=== PATIENT | female | born 1965 | race Caucasian/White ===

== ENCOUNTER → 2020-06-12 | Outpatient (CLI) | payer OTHER ==
[~2020-06-12] MED LIST: ALDACTONE 25MG25 M1 PO; ENULOSE10 GM/15 M PO; JENTADUETO 2.51 TA1 PO; PRIL40 PO; ZESTRIL 20MG TA20 MG PO
== END ==
LOC: MC.RAD 09:30
DX: Z12.31 Encounter for screening mammogram for malignant neoplasm of breast (principal)

== ENCOUNTER → 2020-06-13 | Outpatient (CLI) | payer MEDICAID | LOC: COL.CARD 09:36 | DX: I34.0 Nonrheumatic mitral (valve) insufficiency (principal) ==

== ENCOUNTER 2020-07-03 09:30 | Outpatient (RCR) | payer MEDICAID, OTHER ==
[2020-08-01] MEDS ORDERED: ZITHROMAX Z PA250 MG PO (15:16)
[2020-08-03] MEDS ORDERED: ZITHROMAX Z PA250 MG PO (18:07)
== END 2020-09-06 14:33 | disposition home or self-care (01) ==
LOC: WSOT 09:30
DX: G56.00 Carpal tunnel syndrome, unspecified upper limb (principal)

== ENCOUNTER → 2020-07-05 | Outpatient (CLI) | payer MEDICAID | LOC: COL.RAD 09:47 | DX: C22.0 Liver cell carcinoma (principal) | CPT/HCPCS: A9537; J2805 ==

== ENCOUNTER → 2020-07-17 | Outpatient (CLI) | payer MEDICAID ==
[2020-07-17 12:32] LABS: BASO % 0.3 % (0.0-2.0); EOS % 0.3 % (0-4.0); GRAN # 2.5 (1.4-6.5); GRAN % 72.4 % (42.2-75.2); HEMOGLOBIN 12.3 g/dl (12.5-16.0); LYMPH # 0.7 (1.2-3.4); LYMPH % 18.9 % (20.0-51.0); MEAN CELL VOLUME 97 fl (80.0-100.0); MEAN CORPUSCULAR HEMOGLOBIN 34 pg (27.0-31.0); MEAN CORPUSCULAR HGB CONC 35 g/dl (33.0-37.0); MONO # 0.3 (0.1-0.6); MONO % 7.8 % (1.7-9.3); PLATELET COUNT 58 K/mm3 (130-400); RED BLOOD COUNT 3.65 M/mm3 (4.10-5.30); REDCELL DISTRIBUTION WIDTH-CV 13.7 % (11.5-14.5)
[2020-07-17 12:36] LABS: HEMATOCRIT 35.4 % (37.0-47.0)
[2020-07-17 12:39] LABS: INR 1.4 (0.8-3.0); PROTHROMBIN TIME 15.5 SECONDS (9.7-12.8)
[2020-07-17 12:44] LABS: ALBUMIN 4.1 gm/dL (3.5-5.0); BILIRUBIN,TOTAL 1.5 mg/dL (0.0-1.0); CALCIUM 9.2 mg/dL (8.4-10.2); CREATININE, serum 0.63 (0.52-1.25); POTASSIUM 3.9 mmol/L (3.4-5.0); TOTAL PROTEIN 8.5 gm/dL (6.4-8.2)
== END ==
LOC: COL.RAD 10:49 → COL.LAB 10:49 → COL.RAD 11:00
PROVIDERS: Internal Medicine
DX: C22.0 Liver cell carcinoma (principal); I26.99 Other pulmonary embolism without acute cor pulmonale; R91.8 Other nonspecific abnormal finding of lung field
CPT/HCPCS: Q9967

== ENCOUNTER → 2020-07-24 | Outpatient (CLI) | payer MEDICAID | LOC: COL.CARD 12:58 | DX: R01.1 Cardiac murmur, unspecified (principal) ==

== ENCOUNTER 2020-08-01 12:00 | Emergency (ER) | payer MEDICAID ==
[~2020-08-01] VITALS: Ht 149.9 cm; Wt 53.2 kg
[2020-08-01 12:09] VITALS: TEMP 98.6
[2020-08-01 12:57] LABS: BASO % 0.2 % (0.0-2.0); EOS # 0.1 (0.0-0.7); EOS % 1.4 % (0-4.0); GRAN # 3.1 (1.4-6.5); GRAN % 68.9 % (42.2-75.2); HEMATOCRIT 31.8 % (37.0-47.0); HEMOGLOBIN 10.6 g/dl (12.5-16.0); LYMPH % 21.9 % (20.0-51.0); MEAN CELL VOLUME 102 fl (80.0-100.0); MEAN CORPUSCULAR HEMOGLOBIN 34 pg (27.0-31.0); MEAN CORPUSCULAR HGB CONC 33 g/dl (33.0-37.0); MEAN PLATELET VOLUME 9.7 fl (7.4-10.4); MONO # 0.3 (0.1-0.6); MONO % 7.4 % (1.7-9.3); PLATELET COUNT 96 K/mm3 (130-400); RED BLOOD COUNT 3.12 M/mm3 (4.10-5.30); REDCELL DISTRIBUTION WIDTH-CV 17.6 % (11.5-14.5)
[2020-08-01 13:08] LABS: ALBUMIN 3.9 gm/dL (3.5-5.0); BILIRUBIN,TOTAL 1.2 mg/dL (0.0-1.0); CREATININE, serum 0.83 (0.52-1.25); POTASSIUM 4.2 mmol/L (3.4-5.0); TOTAL PROTEIN 8.3 gm/dL (6.4-8.2)
[2020-08-01] MEDS ORDERED: ZITHROMAX Z PA250 MG PO (15:16)
[2020-08-01 16:10] VITALS: BP 134/94; PULSE 90
== END 2020-08-01 16:12 | disposition home or self-care (01) ==
LOC: COL.ER 12:00
PROVIDERS: Family Medicine
DX: J06.9 Acute upper respiratory infection, unspecified (principal); Z20.828 Contact with and (suspected) exposure to other viral communicable diseases

== ENCOUNTER → 2020-09-14 | Outpatient (CLI) | payer MEDICAID ==
[~2020-09-14] MED LIST changes: +ZITHROMAX Z PA250 MG PO
[2020-09-14 09:01] LABS: INR 1.9 (0.8-3.0); PROTHROMBIN TIME 21.9 SECONDS (9.7-12.8)
[2020-09-14 09:04] LABS: PARTIAL THROMBOPLASTIN TIME 37.3 SECONDS (26.0-37.0)
== END ==
LOC: COL.RAD 08:00 → COL.LAB 08:14 → COL.RAD 09:45
PROVIDERS: Orthopaedic Surgery
DX: C41.9 Malignant neoplasm of bone and articular cartilage, unspecified (principal); C78.7 Secondary malignant neoplasm of liver and intrahepatic bile duct
CPT/HCPCS: A9503

== ENCOUNTER → 2020-09-22 | Outpatient (CLI) | payer MEDICAID | LOC: ZCOL.LAB 02:31 | DX: Z01.812 Encounter for preprocedural laboratory examination (principal); B34.9 Viral infection, unspecified; Z20.828 Contact with and (suspected) exposure to other viral communicable diseases ==

== ENCOUNTER 2020-10-29 22:34 | Inpatient (IN) | payer MEDICAID ==
[~2020-10-29] VITALS: Ht 149.9 cm; Wt 60.1 kg
[2020-10-30 01:10] LABS: CREATININE, serum 0.44 (0.52-1.25); INR 2.1 (0.8-3.0); PARTIAL THROMBOPLASTIN TIME 38.7 SECONDS (26.0-37.0); PROTHROMBIN TIME 23.3 SECONDS (9.7-12.8)
[2020-10-30 01:11] LABS: ALBUMIN 2.8 gm/dL (3.5-5.0); BILIRUBIN,TOTAL 0.8 mg/dL (0.0-1.0); TOTAL PROTEIN 7.1 gm/dL (6.4-8.2)
[2020-10-30 01:12] LABS: POTASSIUM 2.9 mmol/L (3.4-5.0)
[2020-10-30 01:13] LABS: BASO % 0.4 % (0.0-2.0); EOS # 0.1 (0.0-0.7); EOS % 4.3 % (0-4.0); GRAN # 1.8 (1.4-6.5); GRAN % 65.5 % (42.2-75.2); HEMATOCRIT 26.8 % (37.0-47.0); HEMOGLOBIN 8.5 g/dl (12.5-16.0); LYMPH # 0.5 (1.2-3.4); LYMPH % 17.8 % (20.0-51.0); MEAN CELL VOLUME 102 fl (80.0-100.0); MEAN CORPUSCULAR HEMOGLOBIN 32 pg (27.0-31.0); MEAN CORPUSCULAR HGB CONC 32 g/dl (33.0-37.0); MEAN PLATELET VOLUME 9.4 fl (7.4-10.4); MONO # 0.3 (0.1-0.6); MONO % 11.6 % (1.7-9.3); PLATELET COUNT 98 K/mm3 (130-400); RED BLOOD COUNT 2.62 M/mm3 (4.10-5.30); REDCELL DISTRIBUTION WIDTH-CV 18.8 % (11.5-14.5)
[2020-10-30 02:39] LABS: HEMATOCRIT 24.4 % (37.0-47.0); HEMOGLOBIN 7.9 g/dl (12.5-16.0)
[2020-10-30] MEDS ORDERED: MACROBID 1100 MG/CAP PO (04:07)
[2020-10-30] MEDS ORDERED: ELIQUIS 5MG PO (04:38)
--- NOTE | 2020-10-30 05:00 | NUR ---
Patient to medical room 316 at this time. She is alert and oriented with complaints of pain 8/10 in her lower abdomen. She requets to use the bathroom and transfers to BS with SBA; She has a small, liquid BM with a very scant amount of blood. She is not SOA. IV fluids, potassium replacement, morphine pain management and protonix administration initiated. She has a left hip incision from her surgery 2-3 weeks ago at [facility]; Incisions are CDI.
[2020-10-30 05:17] VITALS: BP 118/66; PULSE 87; TEMP 98.3
[2020-10-30 05:54] LABS: BASO % 0.4 % (0.0-2.0); EOS # 0.1 (0.0-0.7); GRAN # 1.3 (1.4-6.5); GRAN % 54.8 % (42.2-75.2); LYMPH # 0.6 (1.2-3.4); MEAN CELL VOLUME 104 fl (80.0-100.0); MEAN CORPUSCULAR HGB CONC 32 g/dl (33.0-37.0); MEAN PLATELET VOLUME 10.1 fl (7.4-10.4); MONO # 0.3 (0.1-0.6); MONO % 13.4 % (1.7-9.3); PLATELET COUNT 83 K/mm3 (130-400); RED BLOOD COUNT 2.45 M/mm3 (4.10-5.30); REDCELL DISTRIBUTION WIDTH-CV 18.7 % (11.5-14.5)
[2020-10-30 05:56] LABS: HEMATOCRIT 25.4 % (37.0-47.0); HEMOGLOBIN 8.2 g/dl (12.5-16.0); MEAN CORPUSCULAR HEMOGLOBIN 33 pg (27.0-31.0)
[2020-10-30 06:07] LABS: CALCIUM 7.3 mg/dL (8.4-10.2); CREATININE, serum 0.4 (0.52-1.25); POTASSIUM 3.3 mmol/L (3.4-5.0)
[2020-10-30 06:24] LABS: COLLECTION METHOD CLEAN CATCH; MUCOUS Present /lpf; PH 5 (5-8); SQUAMOUS EPITHELIAL 0-2 /hpf; URINE APPEARANCE Clear; URINE BACTERIA None Seen /hpf; URINE BILIRUBIN Negative (NEGATIVE); URINE BLOOD Negative (NEGATIVE); URINE COLOR Yellow; URINE GLUCOSE Negative (NEGATIVE); URINE KETONE Negative (NEGATIVE); URINE LEUKOCYTE ESTERASE Negative (NEGATIVE); URINE NITRATE Negative (NEGATIVE); URINE PROTEIN(semi-quant) Negative (NEGATIVE); URINE RBC 0-2 /hpf; URINE UROBILINOGEN Negative (NEGATIVE)
--- NOTE | 2020-10-30 07:40 | NUR ---
PT PLEASANT, AOX4, REPORTS ABD PAIN, MORPHINE GIVEN WHEN AVAILABLE, ALL OTHER MEDS GIVEN, PT POTASSIUM RUNNING, STILL HAVING DIARRHEA, NO OTHER NEEDS
[2020-10-30 08:10] VITALS: BP 142/80; PULSE 94; TEMP 98.5
[2020-10-30 12:37] VITALS: BP 113/90; PULSE 89; TEMP 98.1
--- NOTE | 2020-10-30 13:58 | NUR ---
First visit from the veterinary technology instructor. No needs right now.
--- NOTE | 2020-10-30 16:01 | NUR ---
Hydraulic Miner met with patient to discuss discharge planning. Patient lives in [place] with her daughter, Gissel (ph#[phone]) and son in law Tomasz (ph#[phone]). Patient goes to the [facility] for primary care and currently obtains medications from [facility]. Patient states she does have some difficulty picking up her medications because she has to rely on Tomasz for transportation. Patient is interested in switching to a pharmacy that delivers medications. SW advised [facility] both offer delivery. Patient states she may consider changing. Patient uses a walker and cane at home. Patient is interested in obtaining a bedside commode so SW advised patient where this could be purchased as insurance typically will not cover this. Patient states her daughter Gissel provides assistance as needed with ADLS. Patient states she is in the process of completing DPOA-HC and plans to designate Gissel and Tomasz. Patient states her son, Giles (ph#[phone]) is also another good point of contact. Patient plans to return home upon discharge. SW will continue to follow.
--- NOTE | 2020-10-30 16:09 | NUR ---
English Adjunct Faculty contacted [facility] to request PT/OT orders.
[2020-10-30 16:32] VITALS: BP 116/76; PULSE 88; TEMP 98.1
--- NOTE | 2020-10-30 16:32 | NUR ---
DISCUSSED CURRENT POC WITH PT SON
[2020-10-30 16:34] LABS: HEMATOCRIT 30.1 % (37.0-47.0); HEMOGLOBIN 9.4 g/dl (12.5-16.0)
--- NOTE | 2020-10-30 17:49 | NUR ---
PT STARTING GOLYTELY, NAUSEAS DESPITE ZOFRAN ADMINISTRATION,DENYING ABD PAIN SINCE AFTERNOON. PT HAVING DIARRHEA FREQUENTLY STILL, NO OTHER NEEDS AT THIS TIME.
--- NOTE | 2020-10-30 20:00 | NUR ---
Assessment complete. Patient is drinking her 3rd cup of go-lightly and is starting to have loose stools. She has no complaints of nausea or pain at this time. No new concerns. Call light in reach.
[2020-10-30 20:53] VITALS: BP 111/68; PULSE 93; TEMP 99.2
[2020-10-31] VITALS (11 sets, daily range): BP systolic 87–103; BP diastolic 59–66; PULSE 77–90; TEMP 98.3–98.6
--- NOTE | 2020-10-31 05:26 | NUR ---
Patient has been consistently drinking go-lightly throughout the night. Stool is currently watery and mostly clear, with occassional chunks or red-tinged. She has had no complaints of pain overnight. Will continue to monitor.
--- NOTE | 2020-10-31 06:50 | NUR ---
Report with SHARMILA Mon. Pt resting in bed, alert but drowsy, denies needs at this time. POC reviewed with pt to have nothing more by mouth until after procedure. Pt verbalizes understanding. Call light in reach.
[2020-10-31 07:23] LABS: BASO % 0.7 % (0.0-2.0); EOS # 0.1 (0.0-0.7); EOS % 3.6 % (0-4.0); GRAN # 1.7 (1.4-6.5); GRAN % 55.8 % (42.2-75.2); LYMPH # 0.7 (1.2-3.4); LYMPH % 23.9 % (20.0-51.0); MEAN CELL VOLUME 105 fl (80.0-100.0); MEAN CORPUSCULAR HGB CONC 32 g/dl (33.0-37.0); MEAN PLATELET VOLUME 10.4 fl (7.4-10.4); MONO # 0.5 (0.1-0.6); MONO % 15.7 % (1.7-9.3); PLATELET COUNT 94 K/mm3 (130-400); RED BLOOD COUNT 2.49 M/mm3 (4.10-5.30); REDCELL DISTRIBUTION WIDTH-CV 19.1 % (11.5-14.5)
[2020-10-31 07:30] LABS: HEMATOCRIT 26.1 % (37.0-47.0); HEMOGLOBIN 8.3 g/dl (12.5-16.0); MEAN CORPUSCULAR HEMOGLOBIN 33 pg (27.0-31.0)
[2020-10-31 07:33] LABS: ALBUMIN 2.4 gm/dL (3.5-5.0); BILIRUBIN,TOTAL 1.1 mg/dL (0.0-1.0); CALCIUM 7.1 mg/dL (8.4-10.2); CREATININE, serum 0.47 (0.52-1.25); MAGNESIUM 1.8 mg/dL (1.6-2.3); POTASSIUM 3.9 mmol/L (3.4-5.0); TOTAL PROTEIN 6.4 gm/dL (6.4-8.2)
--- NOTE | 2020-10-31 08:00 | NUR ---
Assessment complete. Pt resting in bed, A&O x 4, denies pain or needs at this time. Pt having liquid, mostly clear stools after bowel prep. Saline lock IV to left AC site without s/s of complications. Physical assessment otherwise unremarkabl. Call light in reach.
--- NOTE | 2020-10-31 11:10 | NUR ---
Pt to endo for procedure via cart accompanied by nurse.
--- NOTE | 2020-10-31 12:15 | NUR ---
Pt back to room following procedure, awake and alert, denies pain, reports appetite and requesting advanced diet VSS. No further needs reported. Call light in reach.
[2020-10-31 16:12] LABS: CLOSTRIDIUM DIFF A/B NEG; CLOSTRIDIUM DIFF A/B INTERP No C.diff present
--- NOTE | 2020-10-31 18:45 | NUR ---
26 jeanine removed from left hip site with incision x 3, slight redness around staple insertion sites but no complications with removal. Edges of incisions well approximated. Pt denies needs. Call light in reach.
--- NOTE | 2020-10-31 20:00 | NUR ---
Assessment complete. Patient complains of abdominal pain 7/10 and 2 mg morphine is administered. She is otherwise comfortable with no new concerns. Her left hip incision has had jeanine removed and it is SENIOR CONSULTANT and CDI. Patient gets up independently to the restroom. Call light in reach.
--- NOTE | 2020-10-31 20:00 | NUR ---
Patient to medical room 319 at this time. He is alert and oriented and independently ambulatory. He has no complaints of pain; He states he is experiencing some chills and a temperature of 101 degrees. 2nd NS bolus of 1000 mls is currently infusing. Lung sounds are clear, heart rate is normal/regular, no edema, no skin issues. Patient is educated eyewear consultant light system and bed controls. Will continue to monitor.
[2020-11-01 07:14] LABS: POTASSIUM 4.2 mmol/L (3.4-5.0)
[2020-11-01 07:57] VITALS: BP 98/66; PULSE 69; TEMP 98.4
[2020-11-01 08:13] LABS: MEAN CELL VOLUME 108 fl (80.0-100.0); MEAN CORPUSCULAR HGB CONC 31 g/dl (33.0-37.0); MEAN PLATELET VOLUME 10.4 fl (7.4-10.4); PLATELET COUNT 83 K/mm3 (130-400); RED BLOOD COUNT 2.56 M/mm3 (4.10-5.30); REDCELL DISTRIBUTION WIDTH-CV 18.8 % (11.5-14.5)
[2020-11-01 08:19] LABS: HEMATOCRIT 27.6 % (37.0-47.0); HEMOGLOBIN 8.5 g/dl (12.5-16.0); MEAN CORPUSCULAR HEMOGLOBIN 33 pg (27.0-31.0)
[2020-11-01 08:22] LABS: CALCIUM 7.6 mg/dL (8.4-10.2); CREATININE, serum 0.46 (0.52-1.25)
--- NOTE | 2020-11-01 08:25 | NUR ---
Shift assessment complete. Sitting up in chair eating breakfast. A&Ox4. Heart RRR. Lungs CTA. Denies pain, nausea, dizziness, or SOA. No other complaints at this time. Call light in reach.
[2020-11-01] MEDS ORDERED: PREDNISONE50 MG PO (09:48)
[2020-11-01] MEDS ORDERED: PREDNISONE10 MG PO (09:49)
[2020-11-01 11:20] VITALS: BP 91/63; PULSE 64; TEMP 97.7
[2020-11-01] MEDS ORDERED: K-DUR 10 MEQ T10 MEQ PO (12:09)
--- NOTE | 2020-11-01 12:15 | NUR ---
Patient asked for ashes for reinaldo friday. annointed her with ashes. No other needs right now.
--- NOTE | 2020-11-01 12:46 | NUR ---
Discharge instructions discussed with pt and all questions answered. Pt had some confusion on which meds to continue at home, Yaquelin CAUSEY notified and discussed/wrote all meds down for pt. Pt verbalizes understanding at this time. Left AC INT removed w/o S/S complication. Pt awaiting clothes and ride from son-in-law.
== END 2020-11-01 13:30 | disposition home or self-care (01) | DRG 393 ==
LOC: COL.ER 22:34 → MEDICAL 10-30 03:07
PROVIDERS: Family Medicine; Hospitalist; Internal Medicine Gastroenterology; Nurse Practitioner Family; Physician Assistant; ADMIT Internal Medicine
PROC: 0DBE8ZX Excision of Large Intestine, Via Natural or Artificial Opening Endoscopic, Diagnostic (ICD-10-PCS; principal; 2020-10-31 12:00)
DX: K52.1 Toxic gastroenteritis and colitis (principal); I82.0 Budd-Chiari syndrome; C22.8 Malignant neoplasm of liver, primary, unspecified as to type; R18.8 Other ascites; N39.0 Urinary tract infection, site not specified; C79.51 Secondary malignant neoplasm of bone; T45.1X5A Adverse effect of antineoplastic and immunosuppressive drugs, initial encounter; I10 Essential (primary) hypertension; E11.9 Type 2 diabetes mellitus without complications; K74.60 Unspecified cirrhosis of liver; R01.1 Cardiac murmur, unspecified; I86.4 Gastric varices; I86.8 Varicose veins of other specified sites; D53.9 Nutritional anemia, unspecified; E87.6 Hypokalemia; B19.20 Unspecified viral hepatitis C without hepatic coma; Z86.711 Personal history of pulmonary embolism; Z79.01 Long term (current) use of anticoagulants; Z87.891 Personal history of nicotine dependence; Z96.642 Presence of left artificial hip joint
CPT/HCPCS: 99223-AI; 99232-AI; 99239; C9113; J0696; J2270; J2354; J2405; J2704; J3010; J3480; J7030; J7040; J7512; Q9967

== ENCOUNTER 2020-11-22 20:14 | Observation (INO) | payer MEDICAID ==
[~2020-11-22] VITALS: Ht 144.8 cm; Wt 50.9 kg
[~2020-11-22 20:14] MED LIST changes: +ELIQUIS 5MG PO; +K-DUR 10 MEQ T10 MEQ PO; +MACROBID 1100 MG/CAP PO; +PREDNISONE10 MG PO; +PREDNISONE20 MG PO; +PREDNISONE50 MG PO; +ROXICODONE 55 MG/TAB PO; +ULTRAM 50MG TAB50 MG PO
[2020-11-22 20:55] LABS: BASO % 0.3 % (0.0-2.0); GRAN # 2.9 (1.4-6.5); GRAN % 75.7 % (42.2-75.2); HEMATOCRIT 30.4 % (37.0-47.0); HEMOGLOBIN 9.6 g/dl (12.5-16.0); LYMPH # 0.8 (1.2-3.4); LYMPH % 19.6 % (20.0-51.0); MEAN CELL VOLUME 102 fl (80.0-100.0); MEAN CORPUSCULAR HEMOGLOBIN 32 pg (27.0-31.0); MEAN CORPUSCULAR HGB CONC 32 g/dl (33.0-37.0); MEAN PLATELET VOLUME 11.3 fl (7.4-10.4); MONO # 0.2 (0.1-0.6); MONO % 3.9 % (1.7-9.3); RED BLOOD COUNT 2.98 M/mm3 (4.10-5.30); REDCELL DISTRIBUTION WIDTH-CV 17.2 % (11.5-14.5)
[2020-11-22 20:57] LABS: PLATELET COUNT 39 K/mm3 (130-400)
[2020-11-22 21:00] LABS: ALBUMIN 2.7 gm/dL (3.5-5.0); BILIRUBIN,TOTAL 1.8 mg/dL (0.0-1.0); CREATININE, serum 0.84 (0.52-1.25); POTASSIUM 4.6 mmol/L (3.4-5.0); TOTAL PROTEIN 6.1 gm/dL (6.4-8.2)
[2020-11-22 21:47] LABS: PROTHROMBIN TIME 22.1 SECONDS (9.7-12.8)
[2020-11-22] MEDS ORDERED: XIFAXAN550 MG PO (22:08)
[2020-11-22] MEDS ORDERED: JENTADUETO 2.51 TA1 PO (22:09)
[2020-11-22] MEDS ORDERED: ALDACTONE 25MG25 M1 PO (22:10)
[2020-11-22] MEDS ORDERED: PROZAC 10MG10 MG PO (22:11)
[2020-11-22] MEDS ORDERED: ZOFRAN 4MG T4 MG/TAB PO (22:12)
[2020-11-23] VITALS (9 sets, daily range): BP systolic 99–108; BP diastolic 58–80; PULSE 73–91; TEMP 97.3–98.7
[2020-11-23] MEDS ORDERED: ROXICODONE 55 MG/TAB PO (00:09)
--- NOTE | 2020-11-23 01:05 | NUR ---
2330- PT ADMIT FROM ER PER W/C. HAS BEEN HAVING ABD PAIN RATING 10/10 LOWER ABD ALL ACROSS. HAVING BLOODY STOOLS WITH NAUSEA. DENIES SOA, CHEST PAIN BUT DOES FEEL LIGHTHEADED AND DIZZY AT TIMES. PT BLOOD SUGAR OF 369 NOT TX IN ER. CALLING VINAY CAUSEY FOR PAIN MED, NAUSEA MED AND ORDER FOR BS. 0213- VINAY AT BEDSIDE, ORDERS RECIEVED. PT DAUGHTER AND SON ON FACETIME FOR ASSESSMENT. PT LIVES W DAUGHTER HERE LOCALLY. PT IS A HARD STICK AND A BLEEDER PER ED REPORT TOOK 4X TO GET RT AC, GUARDING. MED REC COMPLETE. GI WILL BE CONSULTED. RECENT EDG COLONSCOPE W LAST ADMIT FINDINGS PER PT WAS COLITIS. HAS HAD LOOSE STOOLS X 3-4 A DAY FOR A LONG TIME PER PT. HOME MEDS RESTARTED. ZOFRAN AND DILUADID FOR BREAKTHRU PAIN GIVEN. PT FEELING MORE COMFORTABLE AFTER. CALL LIGHT W REACH, BED IN LOW POSITION. ORIENTATED TO ROOM. PLEASENT AND THANKFUL.
--- NOTE | 2020-11-23 05:41 | NUR ---
RESTED THROUGH THE NIGHT WO INCIDENT. SINCE PAIN MED GIVEN SLEPT, RESP EVEN AND UNLABORED. NEEDS MET.
[2020-11-23 06:55] LABS: EOS % 0.3 % (0-4.0); GRAN # 2.1 (1.4-6.5); GRAN % 63.5 % (42.2-75.2); LYMPH % 28.7 % (20.0-51.0); MEAN CELL VOLUME 103 fl (80.0-100.0); MEAN CORPUSCULAR HGB CONC 32 g/dl (33.0-37.0); MEAN PLATELET VOLUME 12.9 fl (7.4-10.4); MONO # 0.2 (0.1-0.6); MONO % 7.2 % (1.7-9.3); RED BLOOD COUNT 2.51 M/mm3 (4.10-5.30); REDCELL DISTRIBUTION WIDTH-CV 17.2 % (11.5-14.5)
[2020-11-23 06:58] LABS: HEMATOCRIT 25.9 % (37.0-47.0); HEMOGLOBIN 8.2 g/dl (12.5-16.0); MEAN CORPUSCULAR HEMOGLOBIN 33 pg (27.0-31.0)
[2020-11-23 06:59] LABS: PLATELET COUNT 34 K/mm3 (130-400)
[2020-11-23 07:12] LABS: CALCIUM 7.5 mg/dL (8.4-10.2); CREATININE, serum 0.7 (0.52-1.25); POTASSIUM 3.8 mmol/L (3.4-5.0)
[2020-11-23 08:26] LABS: COLLECTION METHOD CLEAN CATCH
[2020-11-23 08:47] LABS: MUCOUS Present /lpf; PH 5 (5-8); SQUAMOUS EPITHELIAL 0-2 /hpf; URINE APPEARANCE Hazy; URINE BACTERIA None Seen /hpf; URINE BILIRUBIN Negative (NEGATIVE); URINE BLOOD Negative (NEGATIVE); URINE COLOR Amber; URINE GLUCOSE 3+ (NEGATIVE); URINE KETONE Negative (NEGATIVE); URINE LEUKOCYTE ESTERASE Trace (NEGATIVE); URINE NITRATE Negative (NEGATIVE); URINE PROTEIN(semi-quant) 1+ (NEGATIVE); URINE RBC 0-2 /hpf; URINE UROBILINOGEN Negative (NEGATIVE)
--- NOTE | 2020-11-23 11:56 | NUR ---
First visit from the market intelligence consultant. No needs right now.
--- NOTE | 2020-11-23 12:03 | NUR ---
ANTHONY met with the patient to discuss discharge plan. The patient's daughter, Gissel (ph#[phone]), was on video chat on the patient's phone. The patient lives in [place] with Gissel and Gissel's , Tomasz (ph#[phone]). She reports needing assistance with ADLs and has a cane and walker. Gissel reports that she helps the patient with her ADLs. The patient also has home health services from [facility]. ANTHONY attempted to contact Lala at [facility]. ANTHONY left her a voicemail and faxed over updates. The patient does not have a DPOA-HC, but the patient and her daughter were interested in a form. ANTHONY provided. The patient plans to return home with her daughter and resume services from [facility]. SW to continue to follow.
--- NOTE | 2020-11-23 13:50 | NUR ---
Attempted to meet with patient in her room. She was unable to keep her eyes open during initial conversation and when I asked if I should come back later she nodded yes. I then attempted to call her daughter Gissel, but left a message on her voicemail as she was not available either.
--- NOTE | 2020-11-23 19:24 | NUR ---
PT HAD UNEVENTFUL DAY. PT BMs HAVE DECREASED, AND HAVE BEEN LESS DIARRHEA, AND MORE SOFT/LOOSE LIGHT BROWN STOOL. PT STATES SHE IS FEELING MUCH BETTER, BUT IS HAVING INCREASED ANXIETY. CONTACTED PROVIDER WHO DID ORDER SOME LORAZEPAM TO HELP. REPORT HAS BEEN GIVEN TO SHARMILA COBOS AND THERE ARE NO FURTHER CONCERNS.
[2020-11-24 00:39] VITALS: BP 100/69; PULSE 73; TEMP 97.9
[2020-11-24 04:03] VITALS: BP 88/60; PULSE 70; TEMP 97.9
--- NOTE | 2020-11-24 04:15 | NUR ---
Patient had an uneventful night. She had one bowel movement and that was shift change last night. She has been asleep since then. Her blood pressures has been in the low 100's systolic. Her last blood pressure was 88/60 and will call Stephanie CAUSEY. She is asymptomatic. Her blood sugars has been, 200 at 1800 yesterday, 231 at midnight and 185 at 4am. I did also give her some apple juice at midnight as well. That is the only thing she consumed for me. She is resting well and only complains of slight pain on her abdomen.
--- NOTE | 2020-11-24 05:11 | NUR ---
Patient's blood pressure was 88/60 on a few different attempts. She was sleeping prior to taking the BP. Although she does typically average in the low 100's systolic, I did inform Stephanie CAUSEY and she said shes fine with it because the MAP is still greater than 65. Patient is still asymptomatic.
--- NOTE | 2020-11-24 07:10 | NUR ---
PER REPORT PT HAD UNEVENTFUL NIGHT, SOME PAIN NOTED. PT STATES SHE HAS NOT HAD A BM SINCE LAST NIGHT, AND IT WAS BROWN, NOT MUCH RED TO NOTE LIKE PREVIOUS STOOLS. AT THIS TIME, THE PATIENT IS LAYING IN BED, AND NOT MOVING MUCH FROM THE PAIN OF THE ACITES. WILL CONTINUE TO MONITOR. CALL LIGHT WITH IN REACH.
[2020-11-24 07:11] LABS: GRAN # 2.1 (1.4-6.5); GRAN % 73.4 % (42.2-75.2); LYMPH # 0.6 (1.2-3.4); LYMPH % 20.5 % (20.0-51.0); MEAN CELL VOLUME 103 fl (80.0-100.0); MEAN CORPUSCULAR HGB CONC 32 g/dl (33.0-37.0); MEAN PLATELET VOLUME 11.5 fl (7.4-10.4); MONO # 0.2 (0.1-0.6); MONO % 5.7 % (1.7-9.3); RED BLOOD COUNT 2.38 M/mm3 (4.10-5.30); REDCELL DISTRIBUTION WIDTH-CV 17.3 % (11.5-14.5)
[2020-11-24 07:15] LABS: HEMATOCRIT 24.6 % (37.0-47.0); HEMOGLOBIN 7.8 g/dl (12.5-16.0); MEAN CORPUSCULAR HEMOGLOBIN 33 pg (27.0-31.0)
[2020-11-24 07:16] LABS: INR 1.6 (0.8-3.0); PLATELET COUNT 31 K/mm3 (130-400); PROTHROMBIN TIME 17.7 SECONDS (9.7-12.8)
[2020-11-24 07:17] LABS: BILIRUBIN,TOTAL 1.1 mg/dL (0.0-1.0); CALCIUM 7.1 mg/dL (8.4-10.2); CREATININE, serum 0.57 (0.52-1.25); MAGNESIUM 1.8 mg/dL (1.6-2.3); POTASSIUM 3.5 mmol/L (3.4-5.0); TOTAL PROTEIN 4.8 gm/dL (6.4-8.2)
[2020-11-24 07:57] VITALS: BP 108/67; PULSE 78; TEMP 98.2
--- NOTE | 2020-11-24 09:21 | NUR ---
I met with patient herself and then with her son-in-law, Tomasz and daughter Gissel by phone facetime to discuss goals of care. Patient tells me that she has a strong dixie that has helped her through her treatment but that it is true that she feels scared sometimes and not sure that she can do all that is expected. Overall though she feels that her daughter/son in law are supportive and are helping her get through the rough times. She is aware that her bleeding has been a very big concern and that this has to be balanced with her prevention/treatment of blood clots which are also a big concern. She will have a zoom call with her cancer treatment team this afternoon to discuss where they go from here. Looking at remicade for treatment instead of her immunotherapy currently being used. She will see Dr Gómez on Friday. She will be taken off eliquis this and a steroid taper will be started. Adjustments will be made based on her status and followed by Dr Gómez and her cancer treatment team as outpatient. She wishes to proceed with aggressive treatment at this point and this is supported by her family.
[2020-11-24] MEDS ORDERED: PREDNISONE20 MG PO (09:31)
--- NOTE | 2020-11-24 10:29 | NUR ---
The patient was interested in completing a DPOA-HC. Palliative care nurse, Celine, provided form. The patient designated her son-in-law, Tomasz, as the DPOA-HC and her daughter, Gissel, as the alternate. ANTHONY and RN, Celine, witnessed the patient's signature. The patient was provided with the original and some copies. ANTHONY placed a copy in the patient's chart.
[2020-11-24 10:53] VITALS: BP 109/65; PULSE 81; TEMP 98.2
--- NOTE | 2020-11-24 11:01 | NUR ---
PT CURRENTLY GETTING PLATELET TRANSFUSION. TOLERATING INFUSION AT THIS TIME. WILL CONTINUE TO MONITOR.
[2020-11-24 11:14] VITALS: BP 101/66; PULSE 74; TEMP 98.1
[2020-11-24 11:28] VITALS: BP 103/75; PULSE 79; TEMP 98.2
--- NOTE | 2020-11-24 11:57 | NUR ---
The patient is to discharge back home with her family today, 11/24, with home health services for group home/PT/OT from [facility]. SW notified and faxed d/c orders to Lala at [facility]. No additional needs at this time.
--- NOTE | 2020-11-27 11:44 | NUR ---
SW update, [facility] has SHERICE of Home health care verified on 11/27/20
[2021-01-25] MEDS ORDERED: PROMACTA25 MG PO (10:48)
[2021-01-25] MEDS ORDERED: PRIL40 PO (10:49)
[2021-01-25] MEDS ORDERED: LASIX 20MG TABL20 MG PO (10:51)
[2021-01-25] MEDS ORDERED: REMERON 15M15 MG/TA1 PO (10:52)
[2021-01-25] MEDS ORDERED: JENTADUETO 2.51 TA1 PO (10:53)
[2021-01-25] MEDS ORDERED: KLOR-CON20 MEQ PO (10:54)
[2021-01-25] MEDS ORDERED: ZYPREXA 5MG5 MG PO (10:54)
[2021-01-25] MEDS ORDERED: ATARAX 25MG25 MG/TAB PO (10:56)
[2021-01-25] MEDS ORDERED: TYLENOL 500MG500 MG PO (10:57)
[2021-01-25] MEDS ORDERED: KRISTALOSE20 GM/PACK PO (10:57)
== END 2020-11-24 14:45 | disposition home or self-care (01) ==
LOC: COL.ER 20:14 → MEDICAL 21:21
PROVIDERS: Emergency Medicine; Internal Medicine; Nurse Practitioner Family; ADMIT Student in an Organized Health Care Education/Training Program
DX: K52.9 Noninfective gastroenteritis and colitis, unspecified (principal); K92.1 Melena; K74.60 Unspecified cirrhosis of liver; E11.9 Type 2 diabetes mellitus without complications; I26.99 Other pulmonary embolism without acute cor pulmonale; I82.90 Acute embolism and thrombosis of unspecified vein; I34.0 Nonrheumatic mitral (valve) insufficiency; I86.8 Varicose veins of other specified sites; N39.0 Urinary tract infection, site not specified; D64.9 Anemia, unspecified; C79.9 Secondary malignant neoplasm of unspecified site; D69.6 Thrombocytopenia, unspecified; C22.7 Other specified carcinomas of liver; D61.818 Other pancytopenia; F41.9 Anxiety disorder, unspecified; Z96.642 Presence of left artificial hip joint; Z79.891 Long term (current) use of opiate analgesic; Z86.19 Personal history of other infectious and parasitic diseases; Z79.84 Long term (current) use of oral hypoglycemic drugs; Z79.899 Other long term (current) drug therapy; Z87.891 Personal history of nicotine dependence; Z79.01 Long term (current) use of anticoagulants; Z80.1 Family history of malignant neoplasm of trachea, bronchus and lung
CPT/HCPCS: C9113; G0378; J1170; J1815; J2405; J2930; J7030; J7512; P9037; Q9967

== ENCOUNTER 2021-01-15 12:23 | Emergency (ER) | payer MEDICAID ==
[~2021-01-15] VITALS: Ht 147.3 cm; Wt 42.7 kg
[~2021-01-15 12:23] MED LIST changes: +PROZAC 10MG10 MG PO; +XIFAXAN550 MG PO; +ZOFRAN 4MG T4 MG/TAB PO
[2021-01-15 12:30] VITALS: TEMP 98.3
[2021-01-15 13:15] LABS: COLLECTION METHOD CLEAN CATCH
[2021-01-15 13:18] LABS: BASO % 0.5 % (0.0-2.0); EOS # 0.1 (0.0-0.7); EOS % 0.6 % (0-4.0); GRAN # 5.9 (1.4-6.5); HEMOGLOBIN 11.8 g/dl (12.5-16.0); LYMPH # 1.1 (1.2-3.4); LYMPH % 13.4 % (20.0-51.0); MEAN CELL VOLUME 106 fl (80.0-100.0); MEAN CORPUSCULAR HEMOGLOBIN 36 pg (27.0-31.0); MEAN CORPUSCULAR HGB CONC 34 g/dl (33.0-37.0); MEAN PLATELET VOLUME 10.4 fl (7.4-10.4); MONO # 0.8 (0.1-0.6); MONO % 9.6 % (1.7-9.3); PLATELET COUNT 233 K/mm3 (130-400); RED BLOOD COUNT 3.31 M/mm3 (4.10-5.30); REDCELL DISTRIBUTION WIDTH-CV 18.3 % (11.5-14.5)
[2021-01-15 13:20] LABS: HEMATOCRIT 35.1 % (37.0-47.0)
[2021-01-15 13:26] LABS: MUCOUS Present /lpf; PH 5 (5-8); SQUAMOUS EPITHELIAL None Seen /hpf; URINE APPEARANCE Clear; URINE BACTERIA Rare /hpf; URINE BILIRUBIN Negative (NEGATIVE); URINE BLOOD Negative (NEGATIVE); URINE COLOR Yellow; URINE GLUCOSE Negative (NEGATIVE); URINE KETONE Negative (NEGATIVE); URINE LEUKOCYTE ESTERASE Negative (NEGATIVE); URINE NITRATE Negative (NEGATIVE); URINE PROTEIN(semi-quant) Negative (NEGATIVE); URINE RBC 0-2 /hpf; URINE UROBILINOGEN Negative (NEGATIVE)
[2021-01-15 13:33] LABS: ALBUMIN 2.8 gm/dL (3.5-5.0); BILIRUBIN,TOTAL 1.4 mg/dL (0.0-1.0); CALCIUM 8.8 mg/dL (8.4-10.2); CREATININE, serum 0.58 (0.52-1.25); POTASSIUM 4.5 mmol/L (3.4-5.0); TOTAL PROTEIN 7.9 gm/dL (6.4-8.2)
[2021-01-15] MEDS ORDERED: LASIX 20MG TABL20 MG PO (14:34)
[2021-01-15] MEDS ORDERED: PROMACTA25 MG PO (14:39)
[2021-01-15] MEDS ORDERED: INSULIN LI100 UNIT/2 SQ (14:42)
[2021-01-15] MEDS ORDERED: JENTADUETO 2.51 TA1 PO (14:42)
[2021-01-15] MEDS ORDERED: K-TAB10 PO (14:43)
[2021-01-15] MEDS ORDERED: KRISTALOSE10 GM/PACK (14:43)
[2021-01-15] MEDS ORDERED: ATARAX 25MG25 MG/TAB PO (14:45)
[2021-01-15] MEDS ORDERED: REMERON 15M15 MG/TA1 PO (14:47)
[2021-01-15 15:15] VITALS: BP 109/77; PULSE 101
[2021-01-25] MEDS ORDERED: PROMACTA25 MG PO (10:48)
[2021-01-25] MEDS ORDERED: PRIL40 PO (10:49)
[2021-01-25] MEDS ORDERED: LASIX 20MG TABL20 MG PO (10:51)
[2021-01-25] MEDS ORDERED: REMERON 15M15 MG/TA1 PO (10:52)
[2021-01-25] MEDS ORDERED: JENTADUETO 2.51 TA1 PO (10:53)
[2021-01-25] MEDS ORDERED: ZYPREXA 5MG5 MG PO (10:54)
[2021-01-25] MEDS ORDERED: KLOR-CON20 MEQ PO (10:54)
[2021-01-25] MEDS ORDERED: ATARAX 25MG25 MG/TAB PO (10:56)
[2021-01-25] MEDS ORDERED: TYLENOL 500MG500 MG PO (10:57)
[2021-01-25] MEDS ORDERED: KRISTALOSE20 GM/PACK PO (10:57)
== END 2021-01-15 15:16 | disposition home or self-care (01) ==
LOC: COL.ER 12:23
PROVIDERS: Nurse Practitioner Primary Care
DX: R11.0 Nausea (principal); R53.81 Other malaise; R51.9 Headache, unspecified; E11.9 Type 2 diabetes mellitus without complications; I10 Essential (primary) hypertension; Z87.891 Personal history of nicotine dependence; Z85.05 Personal history of malignant neoplasm of liver; Z85.841 Personal history of malignant neoplasm of brain; Z86.711 Personal history of pulmonary embolism; Z88.1 Allergy status to other antibiotic agents; Z79.4 Long term (current) use of insulin
CPT/HCPCS: J2405

== ENCOUNTER → 2021-01-25 | Outpatient (CLI) | payer MEDICAID ==
[~2021-01-25] VITALS: Ht 147.3 cm; Wt 44.5 kg
[~2021-01-25] MED LIST changes: +ALDACTONE50 MG PO; +ATARAX 25MG25 MG/TAB PO; +INSULIN LI100 UNIT/2 SQ; +K-TAB10 PO; +KLOR-CON20 MEQ PO; +KRISTALOSE10 GM/PACK; +KRISTALOSE20 GM/PACK PO; +LASIX 20MG TABL20 MG PO; +PROMACTA25 MG PO; +REMERON 15M15 MG/TA1 PO; +TYLENOL 500MG500 MG PO; +ZYPREXA 5MG5 MG PO
[2021-01-25 10:46] VITALS: BP 116/78; PULSE 98
[2021-01-25 12:05] VITALS: BP 121/84; PULSE 92
[2021-01-25 12:34] LABS: PERITONEAL -POLYMORPHONUCLEAR 5.5 % (0-25); PERITONEAL FLUID RBC 0 /mm3 (0-0)
== END ==
LOC: COL.RAD 01-18 13:45
PROVIDERS: Physician Assistant
DX: K74.60 Unspecified cirrhosis of liver (principal); R18.8 Other ascites
CPT/HCPCS: 19804

== ENCOUNTER 2021-02-16 14:15 | Outpatient (RCR) | payer MEDICAID ==
[2021-01-05 10:56] VITALS: BP 105/70; PULSE 92; TEMP 98.9
[2021-01-05 11:34] LABS: INR 1.5 (0.8-3.0); PROTHROMBIN TIME 16.2 SECONDS (9.7-12.8)
[2021-01-05 11:37] LABS: ALBUMIN 2.7 gm/dL (3.5-5.0); BILIRUBIN,TOTAL 1.1 mg/dL (0.0-1.0); CALCIUM 8.7 mg/dL (8.4-10.2); CREATININE, serum 0.49 (0.52-1.25); TOTAL PROTEIN 7.2 gm/dL (6.4-8.2)
[2021-01-05 12:13] LABS: HEMATOCRIT 32.1 % (37.0-47.0); HEMOGLOBIN 10.8 g/dl (12.5-16.0); MEAN CELL VOLUME 108 fl (80.0-100.0); MEAN CORPUSCULAR HEMOGLOBIN 36 pg (27.0-31.0); MEAN CORPUSCULAR HGB CONC 34 g/dl (33.0-37.0); MEAN PLATELET VOLUME 11.7 fl (7.4-10.4); PLATELET COUNT 142 K/mm3 (130-400); RED BLOOD COUNT 2.98 M/mm3 (4.10-5.30); REDCELL DISTRIBUTION WIDTH-CV 19.9 % (11.5-14.5)
[2021-01-05 12:16] LABS: ANISOCYTOSIS 2+; BAND 3 % (0-10); LYMPHOCYTE 14 % (20.0-51.0); METAMYELOCYTE 2 % (0-0); NEUTROPHILS 76 % (42.0-75.2); NUCLEATED RED BLOOD CELL 1 (0-6); PLATELET ESTIMATE NORMAL (NORMAL)
[2021-01-12 11:33] VITALS: BP 117/77; PULSE 103; TEMP 97.9
[2021-01-12 11:54] LABS: HEMATOCRIT 33.8 % (37.0-47.0); HEMOGLOBIN 11.4 g/dl (12.5-16.0); MEAN CELL VOLUME 106 fl (80.0-100.0); MEAN CORPUSCULAR HEMOGLOBIN 36 pg (27.0-31.0); MEAN CORPUSCULAR HGB CONC 34 g/dl (33.0-37.0); MEAN PLATELET VOLUME 10.5 fl (7.4-10.4); PLATELET COUNT 202 K/mm3 (130-400); RED BLOOD COUNT 3.19 M/mm3 (4.10-5.30); REDCELL DISTRIBUTION WIDTH-CV 18.6 % (11.5-14.5)
[2021-01-12 12:02] LABS: ALBUMIN 2.8 gm/dL (3.5-5.0); BILIRUBIN,TOTAL 1.6 mg/dL (0.0-1.0); CALCIUM 8.6 mg/dL (8.4-10.2); CREATININE, serum 0.57 (0.52-1.25); POTASSIUM 4.1 mmol/L (3.4-5.0); TOTAL PROTEIN 7.8 gm/dL (6.4-8.2)
[2021-01-12 12:05] LABS: ANISOCYTOSIS 3+; EOSINOPHIL 2 % (0-4); LYMPHOCYTE 16 % (20.0-51.0); NEUTROPHILS 71 % (42.0-75.2); PLATELET ESTIMATE NORMAL (NORMAL)
[2021-01-19 17:09] VITALS: BP 106/70; PULSE 92; TEMP 98.8
[2021-02-03 10:12] VITALS: BP 100/70; PULSE 88; TEMP 98.3
[2021-02-09 11:18] VITALS: BP 115/79; PULSE 100; TEMP 97.8
[2021-02-09 11:35] LABS: HEMOGLOBIN 12.1 g/dl (12.5-16.0); MEAN CELL VOLUME 105 fl (80.0-100.0); MEAN CORPUSCULAR HEMOGLOBIN 35 pg (27.0-31.0); MEAN CORPUSCULAR HGB CONC 34 g/dl (33.0-37.0); MEAN PLATELET VOLUME 11.2 fl (7.4-10.4); PLATELET COUNT 186 K/mm3 (130-400); RED BLOOD COUNT 3.42 M/mm3 (4.10-5.30); REDCELL DISTRIBUTION WIDTH-CV 16.6 % (11.5-14.5)
[2021-02-09 11:36] LABS: ALBUMIN 2.5 gm/dL (3.5-5.0); BILIRUBIN,TOTAL 2.2 mg/dL (0.0-1.0); CALCIUM 8.6 mg/dL (8.4-10.2); CREATININE, serum 0.9 (0.52-1.25); HEMATOCRIT 35.8 % (37.0-47.0); POTASSIUM 4.5 mmol/L (3.4-5.0)
[2021-02-09 12:19] LABS: BASOPHIL 1 % (0-2); EOSINOPHIL 1 % (0-4); LYMPHOCYTE 8 % (20.0-51.0); METAMYELOCYTE 1 % (0-0); NEUTROPHILS 78 % (42.0-75.2); PLATELET ESTIMATE NORMAL (NORMAL)
[~2021-02-16] VITALS: Ht 144.8 cm; Wt 46.0 kg
[~2021-02-16 14:15] MED LIST changes: -ALDACTONE50 MG PO
[2021-02-16 16:37] VITALS: BP 104/75; PULSE 102; TEMP 97.9
--- NOTE | 2021-03-01 09:23 | NUR ---
Pt son called last to report pt inpatient at another facility.Pt scheduled tomorrow for dressing change.This nurse called U[facility] Fiore to request new orders and inquire when pt returning to [facility] for P[facility] cares.
== END 2021-03-01 10:00 | disposition home or self-care (01) ==
LOC: EUO 14:15
PROVIDERS: Internal Medicine Medical Oncology
DX: D61.818 Other pancytopenia (principal)

== ENCOUNTER 2021-03-10 07:57 | Outpatient (RCR) | payer MEDICAID ==
--- NOTE | 2021-03-01 10:02 | NUR ---
SPOKE WITH PT WHO CONFIMED SHE WILL BE HERE FOR APT TOMORROW
--- NOTE | 2021-03-09 09:37 | NUR ---
Pt's son calls stating they are out of town and will not return until after 2200 tonight. He is asked if there is any way they can return prior to 1999 so PICC dressing can be changed, he states there is no way. Importance of routine dressing changes discussed with son, who expresses understanding. Dressing was last changed on Friday of last week while pt was at . Son states the doctors at had told the patient that she should visit family now due to poor prognosis. Son assures this nurse they can have pt here tomorrow morning for PICC cares. MALLORIE Lopez RN notified.
[2021-03-10 08:00] VITALS: BP 99/63; PULSE 84; TEMP 98.1
[2021-03-10] MEDS ORDERED: ALDACTONE50 MG PO (09:48)
[2021-03-10 09:54] LABS: MEAN CELL VOLUME 103 fl (80.0-100.0); MEAN CORPUSCULAR HGB CONC 34 g/dl (33.0-37.0); MEAN PLATELET VOLUME 11.3 fl (7.4-10.4); PLATELET COUNT 154 K/mm3 (130-400); RED BLOOD COUNT 2.39 M/mm3 (4.10-5.30); REDCELL DISTRIBUTION WIDTH-CV 18.6 % (11.5-14.5)
[2021-03-10 09:56] LABS: HEMATOCRIT 24.5 % (37.0-47.0); HEMOGLOBIN 8.2 g/dl (12.5-16.0); MEAN CORPUSCULAR HEMOGLOBIN 34 pg (27.0-31.0)
[2021-03-10 11:13] LABS: EOSINOPHIL 3 % (0-4); LYMPHOCYTE 14 % (20.0-51.0); NEUTROPHILS 75 % (42.0-75.2); PLATELET ESTIMATE NORMAL (NORMAL)
[2021-03-10 11:14] LABS: ANISOCYTOSIS 1+; MICROCYTOSIS 1+
[2021-03-10 11:15] LABS: OVALOCYTES 1+
--- NOTE | 2021-03-23 19:14 | NUR ---
Contact made with pt's daughter Gissel this evening as pt missed today's appt for PICC cares. She informs that pt has been placed on hospice care, and hospice nurses are completing PICC line cares and dressing changes.
== END 2021-03-25 13:55 | disposition home or self-care (01) ==
LOC: EUO 07:57
PROVIDERS: Internal Medicine Medical Oncology
DX: D61.818 Other pancytopenia (principal)